=== PATIENT | female | born 1975 | race Hispanic/Latino ===

== ENCOUNTER 2016-09-17 11:18 | Day surgery (SDC) | payer BC, OTHER ==
[2016-09-17 11:36] VITALS: BMI 18.6
[2016-09-17 12:19] LABS: HEMOGLOBIN 13.3 g/dL (12.0-16.0); MEAN CELL VOLUME 98.4 fl (81.0-99.0); MEAN CORPUSCULAR HEMOGLOBIN 33.9 pg (27.0-31.0); MEAN CORPUSCULAR HGB CONC 34.5 g/dL (33.0-37.0); RBC 3.91 Mil/uL (3.80-5.20); RED CELL DISTRIBUTION WIDTH 13.3 % (11.5-14.5); WHITE BLOOD COUNT 4.9 K/uL (4.8-10.8)
[2016-09-17] MEDS ORDERED: Silver Nitrate Topical - Stick ONE (12:48)
[2016-09-17] MEDS ORDERED: Propofol 10 mg/ml Inj (20 ML) ONE (12:55)
[2016-09-17] MEDS ORDERED: Midazolam 2 MG/2 ML VIAL ONE (12:56)
[2016-09-17] MEDS ORDERED: Rocuronium 10 mg/ml (5 ml) ONE (12:56)
[2016-09-17] MEDS ORDERED: Bupivacaine 0.5% Inj(30mL) ONE (13:23)
[2016-09-17] MEDS ORDERED: Lactated Ringer's 1,000 ML IV ONE ×2 (13:38→14:00)
[2016-09-17] MEDS ORDERED: Dexamethasone 4 mg/1 ml ONE (13:57)
[2016-09-17] MEDS ORDERED: Neostigmine Methylsulfate 3mg/3ml Syringe IV ONE (14:02)
[2016-09-17] MEDS ORDERED: Bupivacaine 0.5% 50 ML IJ ONE (14:15)
[2016-09-17] MEDS ORDERED: HYDROmorphone 0.5 mg/0.5 ml ISec IVP PRN ×2 (15:08→15:41)
[2016-09-17] MEDS ORDERED: DiphenhydrAMINE 50 mg/ml Inj IVP STA (16:40)
[2016-09-17 18:54] VITALS: RESP 18
[2016-09-17 19:58] VITALS: PULSE 67
[2016-09-17] MEDS ORDERED: Oxycodone/Acetaminophen 5/325 mg Tab PO PRN (20:56)
[2016-09-17] MEDS ORDERED: Lactated Ringer's 1,000 ML IV SCH (21:00)
[2016-09-17 21:04] VITALS: BP 95/60; TEMP 97.9; O2SAT 100
--- NOTE | 2016-09-24 08:42 | PCM.OP ---
Operative Report - Operative Report Date of Surgery/Procedure: 09/17/16 Time of Surgery/Procedure: 07:45 Surgeon: Dr. Homar Bo [place] Farmer: Dr. Eulalio Rivero Anesthesia/Sedation: General/Dr. Burns Pre-Operative Diagnosis: Abdominal pain and endometriosis Post-Operative Diagnosis: same Indication for Surgery: Abdominal pain and endometriosis Operative Findings: endometriosis Procedure/Operation Description: 1-Excision perirectal endometriosis x2. Breif History: This 40 year old woman was already brought to the operating room by Dr. Rivero for abdominal pain from endometriosis when he discoverd two lesions on the rectum. Consultation was requested for general surgical evaluation. Description of Operation: The patient had already intitated robotic exploration by Dr. Rivero (separate dictation Dr. Rivero) when he noted two separate lesions on the rectum. I took over the robotic console and evalauted the lesions in question. Using blunt and sharp disection with the aid of electrocautery the first, most distal lesion was dissected circumferentially from the rectal wall with meticulous attention to hemostasis. The lesion was excised en-bloc, appropriately marked and sent to pathology as a separate specimen. The second lesion, more proximal was dissected in a similar manner and sent to patholgy as well as a spearate specimen. The surgical sites were exmained and hemostasis was deemed adeqaute. The operation was then turned over to Dr. Rivero (separate dictation Dr. Rivero). Estimated Blood Loss: 5 cc Blood Replaced: none Sponge/Instrument Count: correct Complications: none Specimen: perirectal lesions x2 Discharge & Condition: stable
== END 2016-09-17 22:51 | disposition home or self-care (01) ==
LOC: H.OPSURG 11:18 → H.MEDSURG1 20:12 → H.OPSURG 22:51
PROVIDERS: ATTEND Obstetrics & Gynecology Reproductive Endocrinology
DX: N80.5 Endometriosis of intestine (principal); N80.8 Other endometriosis
CPT/HCPCS: 36415; 45999; 85027; 86850; 86900; 88305; C1729; J0690; J1100; J1170; J1200; J1885; J2001; J2250; J2405; J2704; J2710; J3010; J7030; J7040; J7120